=== PATIENT | female | born 1970 | race Hispanic/Latino ===

== ENCOUNTER 2017-12-01 13:06 | Emergency (ER) | payer SELFPAY ==
[2017-12-01 13:09] VITALS: BMI 20.9
[2017-12-01 14:52] LABS: BASO # 0.02 K/mm3 (0.0-2.0); BASO % 0.3 % (0.0-3.0); EOS # 0.1 (0.0-0.7); GRAN # 5.35 (1.4-6.5); GRAN % 68.8 % (50.0-68.0); LYMPH % 25.8 % (22.0-35.0); MEAN CELL VOLUME 91.3 fl (80.0-105.0); MEAN CORPUSCULAR HEMOGLOBIN 31.5 pg (25.0-35.0); MEAN CORPUSCULAR HGB CONC 34.5 g/dl (31.0-37.0); MEAN PLATELET VOLUME 9.1 fl (7.0-11.0); MONO # 0.3 (0.1-0.6); MONO % 4.1 % (1.0-6.0); RBC 3.81 10^6/uL (3.5-6.1); RED CELL DISTRIBUTION WIDTH 15.3 % (11.5-14.5); WHITE BLOOD COUNT 7.8 10^3/ul (4.5-11.0)
[2017-12-01 15:02] LABS: ALB/GLOB RATIO 1.3 (1.1-1.8); ALBUMIN 4.4 g/dL (3.0-4.8); ALT/SGPT 207 U/L (7-56); AST/SGOT 405 U/L (14-36); BLOOD UREA NITROGEN 10 mg/dL (7-21); CALCIUM 8.4 mg/dL (8.4-10.5); GFR AFRICAN-AMERICAN > 60; GFR NON-AFRICAN AMERICAN > 60
[2017-12-01] MEDS ORDERED: Sodium Chloride 0.9% 1,000 ML IV ONE (15:07)
[2017-12-01 16:14] VITALS: TEMP 98.1
--- NOTE | 2017-12-01 17:11 | CT ---
PROCEDURE: CT HEAD WITHOUT CONTRAST. HISTORY: s/p fall - r/o ICH COMPARISON: None available. TECHNIQUE: Axial computed tomography images were obtained through the head/brain without intravenous contrast. Radiation dose: Total exam DLP = 923.32 mGy-cm. This CT exam was performed using one or more of the following dose reduction techniques: Automated exposure control, adjustment of the mA and/or kV according to patient size, and/or use of iterative reconstruction technique. FINDINGS: HEMORRHAGE: No intracranial hemorrhage. BRAIN: Corrigan-white matter differentiation is preserved. There is no mass, mass effect or abnormal extra-axial fluid collection there is no territorial infarction VENTRICLES: The ventricles are normal in size, shape and configuration. CALVARIUM: There is no calvarial fracture or extracranial soft tissue swelling. PARANASAL SINUSES: Predominantly clear. MASTOID AIR CELLS: Predominantly clear. OTHER FINDINGS: There is a moderate right lateral orbital soft tissue hematoma. No intraorbital or retro-orbital hemorrhage. IMPRESSION: No acute intracranial abnormality. Moderate right lateral periorbital soft tissue hematoma.
[2017-12-01 18:33] LABS: BARBITURATES, UR NEGATIVE (NEGATIVE); BENZODIAZEPINES, UR NEGATIVE (NEGATIVE); OPIATES, UR NEGATIVE (NEGATIVE); PHENCYCLIDINE, UR NEGATIVE (NEGATIVE)
[2017-12-01 18:58] VITALS: RESP 20; O2SAT 97
--- NOTE | 2017-12-01 21:51 | ED PDOC ---
Arrival/HPI - General Chief Complaint: Alcohol Ingestion Time Seen by Provider: 12/01/17 13:23 Historian: Patient, EMS - History of Present Illness Narrative History of Present Illness (Text): 12/01/17 13:55 47 year old female presents to the Emergency department intoxicated. Patient was brought in by EMS after being found intoxicated outside of a [employer]. Patient denies any fever, chills, chest pain, shortness of breath, nausea, vomiting, diarrhea, urinary symptoms, back pain, neck pain, headache, dizziness , or any other complaints. Time/Duration: Prior to Arrival Symptom Onset: Gradual Symptom Course: Unchanged Activities at Onset: Light Context: Walking Past Medical History - Provider Review Nursing Documentation Reviewed: Yes - Infectious Disease Hx of Infectious Diseases: None - Psychiatric Hx Substance Use: No (unknown) Family/Social History - Physician Review Nursing Documentation Reviewed: Yes Family/Social History: Unknown Family HX Smoking Status: Unknown If Ever Smoked Hx Alcohol Use: Yes Hx Substance Use: No (unknown) Allergies/Home Meds Allergies/Adverse Reactions: Allergies Unobtainable Allergy (Verified 12/01/17 13:08) Home Medications: Home Meds Medication Instructions Recorded Confirmed Unobtainable 12/01/17 12/01/17 Review of Systems - Physician Review All systems were reviewed & negative as marked: Yes - Review of Systems Constitutional: absent: Fevers, Night Sweats Respiratory: absent: SOB Cardiovascular: absent: Chest Pain Gastrointestinal: absent: Diarrhea, Nausea, Vomiting Genitourinary Female: absent: Dysuria Musculoskeletal: absent: Back Pain, Neck Pain Neurological: absent: Headache, Dizziness Physical Exam Vital Signs Reviewed: Yes Vital Signs Temp Pulse Resp BP Pulse Ox 12/01/17 23:20 90 20 125/83 97 12/01/17 23:00 90 20 125/83 97 12/01/17 18:58 96 H 20 123/89 97 12/01/17 16:13 98.1 F 112 H 18 135/93 H 100 Temperature: Afebrile Blood Pressure: Hypertensive Pulse: Tachycardic Respiratory Rate: Normal Appearance: Positive for: Well-Appearing, Non-Toxic, Comfortable Pain Distress: None Mental Status: Positive for: Alert and Oriented X 3 - Systems Exam Head: Present: Atraumatic, Normocephalic Pupils: Present: PERRL Extroacular Muscles: Present: EOMI Conjunctiva: Present: Normal Mouth: Present: Moist Mucous Membranes Neck: Present: Normal Range of Motion Respiratory/Chest: Present: Clear to Auscultation, Good Air Exchange. No: Respiratory Distress, Accessory Muscle Use Cardiovascular: Present: Regular Rate and Rhythm, Normal S1, S2. No: Murmurs Abdomen: No: Tenderness, Distention, Peritoneal Signs Back: Present: Normal Inspection Upper Extremity: Present: Normal Inspection. No: Cyanosis, Edema Lower Extremity: Present: Normal Inspection. No: Edema Neurological: Present: GCS=15, CN II-XII Intact, Speech Normal Skin: Present: Warm, Dry, Normal Color. No: Rashes Psychiatric: Present: Alert, Oriented x 3, Normal Insight, Normal Concentration Medical Decision Making ED Course and Treatment: 12/01/17 14:00 Impression: 47 year old female presents to the Emergency department intoxicated. Differential Diagnosis included but are not limited to: alcohol intoxication Plan: -- CT scan of the head -- Labs -- Sodium Chloride IV fluids -- Reassess and disposition Progress Notes: - Lab Interpretations Lab Results: 12/01/17 14:40 12/01/17 14:40 Lab Results 12/01/17 17:52: Urine Opiates Screen Negative, Urine Methadone Screen Negative, Ur Barbiturates Screen Negative, Ur Phencyclidine Scrn Negative, Ur Amphetamines Screen Negative, U Benzodiazepines Scrn Negative, U Oth Cocaine Metabols Negative, U Cannabinoids Screen Negative 12/01/17 14:40: Beta HCG, Quant < 2.39 12/01/17 14:40: Alcohol, Quantitative 398 H* 12/01/17 14:40: Sodium 149 H, Potassium 4.0, Chloride 103, Carbon Dioxide 27, Anion Gap 23 H, BUN 10, Creatinine 0.5 L, Est GFR ( Amer) > 60, Est GFR ( Non-Af Amer) > 60, Random Glucose 93, Calcium 8.4, Total Bilirubin 0.6, AST 405 H, ALT 207 H, Alkaline Phosphatase 129 H, Total Protein 7.7, Albumin 4.4, Globulin 3.3, Albumin/Globulin Ratio 1.3 12/01/17 14:40: WBC 7.8, RBC 3.81, Hgb 12.0, Hct 34.8 L, MCV 91.3, MCH 31.5, MCHC 34.5, RDW 15.3 H, Plt Count 217, MPV 9.1, Gran % 68.8 H, Lymph % (Auto) 25.8, [place] % (Auto) 4.1, Eos % (Auto) 1.0 L, Baso % (Auto) 0.3, Gran # 5.35, Lymph # (Auto) 2.0, [place] # (Auto) 0.3, Eos # (Auto) 0.1, Baso # (Auto) 0.02 - RAD Interpretation Narrative RAD Interpretations (Text): 12/01/2017 17:09:46 CT HEAD WITHOUT CONTRAST. FINDINGS: HEMORRHAGE: No intracranial hemorrhage. BRAIN: Corrigan-white matter differentiation is preserved. There is no mass, mass effect or abnormal extra-axial fluid collection there is no territorial infarction VENTRICLES: The ventricles are normal in size, shape and configuration. CALVARIUM: There is no calvarial fracture or extracranial soft tissue swelling. PARANASAL SINUSES: Predominantly clear. MASTOID AIR CELLS: Predominantly clear. OTHER FINDINGS: There is a moderate right lateral orbital soft tissue hematoma. No intraorbital or retro-orbital hemorrhage. IMPRESSION: No acute intracranial abnormality. Moderate right lateral periorbital soft tissue hematoma. Radiology Orders: 12/01/17 16:38 HEAD W/O CONTRAST [CT] Stat - Medication Orders Current Medication Orders: Discontinued Medications Sodium Chloride (Sodium Chloride 0.9%) 1,000 mls @ 250 mls/hr IV .Q4H ONE Stop: 12/01/17 19:06 Last Admin: 12/01/17 19:28 Dose: 250 mls/hr eMAR Start Stop Document 12/01/17 19:28 [email or web address] (Rec: 12/01/17 19:28 [email or web address] [id number]) Intravenous Solution Start Date 12/01/17 Start Time 19:00 Disposition/Present on Arrival - Present on Arrival Any Indicators Present on Arrival: No History of DVT/PE: No History of Uncontrolled Diabetes: No Urinary Catheter: No History of Decub. Ulcer: No History Surgical Site Infection Following: None - Disposition Have Diagnosis and Disposition been Completed?: Yes Diagnosis: Alcohol intoxication Disposition: HOME/ ROUTINE Disposition Time: 21:30 Condition: IMPROVED Discharge Instructions (ExitCare): Alcohol Abuse and Alcoholism (DC) Additional Instructions: Thank you for letting us take care of you today. The emergency medical care you received today was directed at your acute symptoms. If you were prescribed any medication, please fill it and take as directed. It may take several days for your symptoms to resolve. Return to the Emergency Department if your symptoms worsen, do not improve, or if you have any other problems. Please contact your doctor or call one of the physicians/clinics you have been referred to that are listed on the Patient Visit Information form that is included in your discharge packet. Bring any paperwork you were given at discharge with you along with any medications you are taking to your follow up visit. Our treatment cannot replace ongoing medical care by a primary care provider (PCP) outside of the emergency department. Thank you for allowing the [facility] team to be part of your care today. Follow up with your doctor in 2-3 days for re-evaluation and further management. Referrals: [facility], [Non-Staff] - Follow up with primary Forms: [employer] (Spanish)
--- NOTE | 2017-12-01 23:31 | ED PDOC ---
Physical Exam Vital Signs Reviewed: Yes Vital Signs Temp Pulse Resp BP Pulse Ox 12/01/17 18:58 96 H 20 123/89 97 12/01/17 16:13 98.1 F 112 H 18 135/93 H 100 Temperature: Afebrile Blood Pressure: Hypertensive Pulse: Tachycardic Respiratory Rate: Normal Appearance: Positive for: Well-Appearing, Non-Toxic, Comfortable Pain Distress: None Mental Status: Positive for: Alert and Oriented X 3 Medical Decision Making ED Course and Treatment: 12/01/17 23:30: Case endorsed to me by Dr. Casiano. Patient pending sobriety, reassessment and disposition. - Lab Interpretations Lab Results: 12/01/17 14:40 12/01/17 14:40 Lab Results 12/01/17 17:52: Urine Opiates Screen Negative, Urine Methadone Screen Negative, Ur Barbiturates Screen Negative, Ur Phencyclidine Scrn Negative, Ur Amphetamines Screen Negative, U Benzodiazepines Scrn Negative, U Oth Cocaine Metabols Negative, U Cannabinoids Screen Negative 12/01/17 14:40: Beta HCG, Quant < 2.39 12/01/17 14:40: Alcohol, Quantitative 398 H* 12/01/17 14:40: Sodium 149 H, Potassium 4.0, Chloride 103, Carbon Dioxide 27, Anion Gap 23 H, BUN 10, Creatinine 0.5 L, Est GFR ( Amer) > 60, Est GFR ( Non-Af Amer) > 60, Random Glucose 93, Calcium 8.4, Total Bilirubin 0.6, AST 405 H, ALT 207 H, Alkaline Phosphatase 129 H, Total Protein 7.7, Albumin 4.4, Globulin 3.3, Albumin/Globulin Ratio 1.3 12/01/17 14:40: WBC 7.8, RBC 3.81, Hgb 12.0, Hct 34.8 L, MCV 91.3, MCH 31.5, MCHC 34.5, RDW 15.3 H, Plt Count 217, MPV 9.1, Gran % 68.8 H, Lymph % (Auto) 25.8, [place] % (Auto) 4.1, Eos % (Auto) 1.0 L, Baso % (Auto) 0.3, Gran # 5.35, Lymph # (Auto) 2.0, [place] # (Auto) 0.3, Eos # (Auto) 0.1, Baso # (Auto) 0.02 - RAD Interpretation Radiology Orders: 12/01/17 16:38 HEAD W/O CONTRAST [CT] Stat - Medication Orders Current Medication Orders: Discontinued Medications Sodium Chloride (Sodium Chloride 0.9%) 1,000 mls @ 250 mls/hr IV .Q4H ONE Stop: 12/01/17 19:06 Last Admin: 12/01/17 19:28 Dose: 250 mls/hr eMAR Start Stop Document 12/01/17 19:28 [email or web address] (Rec: 12/01/17 19:28 [email or web address] [id number]) Intravenous Solution Start Date 12/01/17 Start Time 19:00 - Scribe Statement The provider has reviewed the documentation as recorded by the Scribe Rahel Carranza Provider Scribe Attestation: All medical record entries made by the Scribe were at my direction and personally dictated by me. I have reviewed the chart and agree that the record accurately reflects my personal performance of the history, physical exam, medical decision making, and the department course for this patient. I have also personally directed, reviewed, and agree with the discharge instructions and disposition. Disposition/Present on Arrival - Present on Arrival History of DVT/PE: No History of Uncontrolled Diabetes: No Urinary Catheter: No History of Decub. Ulcer: No History Surgical Site Infection Following: None - Disposition Diagnosis: Alcohol intoxication Disposition: HOME/ ROUTINE Patient Problems: Current Active Problems Problem Status Onset Alcohol intoxication Acute Condition: IMPROVED Discharge Instructions (ExitCare): Alcohol Abuse and Alcoholism (DC) Additional Instructions: Thank you for letting us take care of you today. The emergency medical care you received today was directed at your acute symptoms. If you were prescribed any medication, please fill it and take as directed. It may take several days for your symptoms to resolve. Return to the Emergency Department if your symptoms worsen, do not improve, or if you have any other problems. Please contact your doctor or call one of the physicians/clinics you have been referred to that are listed on the Patient Visit Information form that is included in your discharge packet. Bring any paperwork you were given at discharge with you along with any medications you are taking to your follow up visit. Our treatment cannot replace ongoing medical care by a primary care provider (PCP) outside of the emergency department. Thank you for allowing the [facility] team to be part of your care today. Follow up with your doctor in 2-3 days for re-evaluation and further management. Referrals: [facility], [Non-Staff] - Follow up with primary Forms: [employer] (Czech)
[2017-12-02 03:34] VITALS: BP 125/83; PULSE 90
== END 2017-12-01 23:20 | disposition home or self-care (01) ==
LOC: ED 13:06
DX: F10.129 Alcohol abuse with intoxication, unspecified (principal)
CPT/HCPCS: 70450; 80053; 84702; 85025; 99284; G0480; J7040